=== PATIENT | male | born 1970 ===

== ENCOUNTER 2017-11-30 13:16 | Emergency (ER) | payer OTHER ==
[2017-11-30] MEDS ORDERED: Aspirin 81 MG Tab.Chew PO ONE (13:28)
[2017-11-30] MEDS ORDERED: HYDROmorphone 0.5 MG/0.5 ML Syringe IVPUSH ONE ×3 (13:40→14:19)
--- NOTE | 2017-11-30 13:42 | EDM.PDOC ---
ED HPI GENERAL MEDICAL PROBLEM - General Stated Complaint: CHEST PAINS Time Seen by Provider: 11/30/17 13:37 Source of Information: Reports: Patient History Limitations: Reports: No Limitations - History of Present Illness INITIAL COMMENTS - FREE TEXT/NARRATIVE: This 47 yo male patient reports to the ED with chest pain. The patient reports his chest pain started to day at 1200 during a meeting. The patient reports after the meeting he continued to have pain and felt a little faint. The patient reports his chest pain was gone at the time of assessment, but also reports his pains have come and gone since the start. The patient describes his symptoms as a "pressure and sharp aches." The patient then reported his pain was a 7/10 constant to nursing staff. Onset: Today Onset Date: 11/30/17 Onset Time: 12:00 Duration: Constant Location: Reports: Chest Quality: Reports: Ache, Pressure Severity: Severe Improves with: Reports: None Worsens with: Reports: None Associated Symptoms: Reports: No Other Symptoms Mid-Sternal Chest Pain Score (Numeric/FACES): 7 - Related Data Allergies Allergy/AdvReac Type Severity Reaction Status Date / Time Penicillins Allergy Cannot Verified 11/30/17 13:33 Remember ED ROS GENERAL - Review of Systems Review Of Systems: ROS reveals no pertinent complaints other than HPI. ED EXAM, GENERAL - Physical Exam Exam: See Below Exam Limited By: No Limitations General Appearance: Alert, WD/WN, Moderate Distress Eye Exam: Bilateral Eye: EOMI, Normal Inspection, PERRL Ears: Normal External Exam, Normal Canal, Hearing Grossly Normal, Normal TMs Nose: Normal Inspection, Normal Mucosa, No Blood Throat/Mouth: Normal Inspection, Normal Lips, Normal Teeth, Normal Gums, Normal Oropharynx, Normal Voice, No Airway Compromise Head: Atraumatic, Normocephalic Neck: Normal Inspection, Supple, Non-Tender, Full Range of Motion Respiratory/Chest: No Respiratory Distress Cardiovascular: Normal Peripheral Pulses, Regular Rate, Rhythm, No Edema, No Gallop, No JVD, No Murmur, No Rub GI/Abdominal: Normal Bowel Sounds, Soft, Non-Tender, No Organomegaly, No Distention, No Abnormal Bruit, No Mass (Male) Exam: Deferred Rectal (Males) Exam: Deferred Back Exam: Normal Inspection, Full Range of Motion, NT Extremities: Normal Inspection, Normal Range of Motion, Non-Tender, Normal Capillary Refill, No Pedal Edema Neurological: Alert, Oriented, CN II-XII Intact, Normal Cognition, Normal Gait, Normal Reflexes, No Motor/Sensory Deficits Psychiatric: Normal Affect, Normal Mood Skin Exam: Warm, Dry, Intact, Normal Color, No Rash Lymphatic: No Adenopathy Course - Vital Signs Last Recorded V/S: Last Vital Signs Temp 35.5 C 11/30/17 13:38 Pulse 66 11/30/17 13:38 Resp 13 11/30/17 13:38 BP 116/76 11/30/17 13:38 Pulse Ox 99 11/30/17 13:38 - Orders/Labs/Meds Orders: Active Orders 24 hr Category Date Time Status EKG Documentation Completion [RC] URGENT Care 11/30/17 13:39 Ordered Heparin Sodium/0.45% NaCl [Heparin 25,000 Units in 1/2 Med 11/30/17 14:11 Ordered NS 500 ML] 25,000 units in 500 ml IV ONETIME Medication Orders Heparin Sodium/Sodium Chloride (Heparin 25,000 Units In 1/2 Ns 500 Ml) 25,000 units in 500 mls @ 21.228 mls/hr IV ONETIME ONE Stop: 12/01/17 13:44 Last Admin: 11/30/17 14:21 Dose: 12 units/kg/hr, 21.228 mls/hr Labs: Laboratory Tests 11/30/17 11/30/17 Range/Units 13:35 13:35 WBC 13.5 H (5.0-10.0) 10^3/uL RBC 4.92 (4.6-6.2) 10^6/uL Hgb 16.1 (14.0-18.0) g/dL Hct 47.5 (40.0-54.0) % MCV 96.5 (80-100) fL MCH 32.7 (27.0-34.0) pg MCHC 33.9 (33.0-35.0) g/dL Plt Count 266 (150-450) 10^3/uL Neut % (Auto) 81.5 H (42.2-75.2) % Lymph % (Auto) 11.7 L (20.5-50.1) % Nelson % (Auto) 6.0 (2-8) % Eos % (Auto) 0.6 L (1.0-3.0) % Baso % (Auto) 0.2 (0.0-1.0) % Sodium 134 L (135-145) mmol/L Potassium 3.7 (3.6-5.0) mmol/L Chloride 98 L (101-111) mmol/L Carbon Dioxide 29.0 (21.0-31.0) mmol/L Anion Gap 10.7 BUN 9 (7-18) mg/dL Creatinine 1.1 (0.6-1.3) mg/dL Est Cr Clr Drug Dosing 84.80 mL/min Estimated GFR (MDRD) > 60 BUN/Creatinine Ratio 8.18 Glucose 166 H (74-105) mg/dL Calcium 8.9 (8.4-10.2) mg/dl Total Bilirubin 0.6 (0.2-1.0) mg/dL AST 24 (10-42) IU/L ALT 19 (10-60) IU/L Alkaline Phosphatase 58 (42-121) IU/L Troponin I < 0.02 (0.00-0.02) ng/ml Total Protein 7.5 (6.7-8.2) g/dl Albumin 3.9 (3.2-5.5) g/dl Globulin 3.6 Albumin/Globulin Ratio 1.08 Meds: Medications Generic Name Dose Route Start Last Admin Trade Name Freq PRN Reason Stop Dose Admin Heparin Sodium/Sodium Chloride 25,000 units in 500 mls @ 21.228 mls/hr 14:11 11/30/17 14:21 Heparin 25,000 Units In 1/2 Ns 500 Ml IV 12/01/17 13:44 12 units/kg/hr ONETIME ONE 21.228 mls/hr Administration 12 UNITS/KG/HR Discontinued Medications Generic Name Dose Route Start Last Admin Trade Name Freq PRN Reason Stop Dose Admin Aspirin 324 mg 11/30/17 13:28 11/30/17 13:32 Aspirin PO 11/30/17 13:29 324 mg ONETIME ONE Administration Clopidogrel Bisulfate 300 mg 11/30/17 14:11 11/30/17 14:15 Plavix PO 11/30/17 14:12 300 mg ONETIME ONE Administration Clopidogrel Bisulfate Confirm 11/30/17 14:12 11/30/17 14:21 Plavix Administered 11/30/17 14:13 Not Given Dose 300 mg .ROUTE .STK-MED ONE Heparin Sodium (Porcine) 5,000 units 11/30/17 14:10 11/30/17 14:16 Heparin Sodium IVPUSH 11/30/17 14:11 5,000 units ONETIME ONE Administration Heparin Sodium (Porcine) Confirm 11/30/17 14:11 11/30/17 14:16 Heparin Sodium Administered 11/30/17 14:12 Not Given Dose 5,000 units .ROUTE .STK-MED ONE Hydromorphone HCl 0.5 mg 11/30/17 13:40 11/30/17 13:46 Dilaudid IVPUSH 11/30/17 13:41 0.5 mg ONETIME ONE Administration Hydromorphone HCl 0.5 mg 11/30/17 13:51 11/30/17 13:51 Dilaudid IVPUSH 11/30/17 13:52 0.5 mg ONETIME ONE Administration Hydromorphone HCl 0.5 mg 11/30/17 14:19 11/30/17 14:20 Dilaudid IVPUSH 11/30/17 14:20 0.5 mg ONETIME ONE Administration Hydromorphone HCl Confirm 11/30/17 14:18 Dilaudid Administered 11/30/17 14:19 Dose 0.5 mg .ROUTE .STK-MED ONE Tenecteplase 45 mg 11/30/17 13:48 11/30/17 14:15 Tnkase IV 11/30/17 13:49 45 mg ONETIME ONE Administration Protocol Departure - Departure Time of Disposition: 14:26 Disposition: DC/Tfer to Acute Hospital 02 Reason for Transfer *Q: Other Condition: Serious Clinical Impression: STEMI (ST elevation myocardial infarction) Qualifiers: Involved coronary artery: unspecified coronary artery Qualified Code(s): I21.3 - ST elevation (STEMI) myocardial infarction of unspecified site Forms: Interfacility Transfer EMTALA Care Plan Goals: Discussed the history, examination, labs, EKG and treatment's with [facility]. The patient was accepted for continued evaluation and treatment. The patient will be transported by [facility]. - My Orders Last 24 Hours: My Active Orders 11/30/17 13:39 EKG Documentation Completion [RC] URGENT 11/30/17 14:11 Heparin Sodium/0.45% NaCl [Heparin 25,000 Units in 1/2 NS 500 ML] 25,000 units in 500 ml IV ONETIME - Assessment/Plan Last 24 Hours: My Active Orders 11/30/17 13:39 EKG Documentation Completion [RC] URGENT 11/30/17 14:11 Heparin Sodium/0.45% NaCl [Heparin 25,000 Units in 1/2 NS 500 ML] 25,000 units in 500 ml IV ONETIME
[2017-11-30] MEDS ORDERED: Tenecteplase 50 MG Kit IV ONE (13:48)
[2017-11-30 14:02] LABS: CHLORIDE,CL 98 mmol/L (101-111); SODIUM,NA 134 mmol/L (135-145)
--- NOTE | 2017-11-30 14:04 | CR ---
CLINICAL HISTORY: 47-year-old male with chest pain and abnormal EKG. INTERPRETATION: Upright AP portable chest film unremarkable, i.e., no acute cardiopulmonary abnormality (external ca rdiac monitor leads). Normal cardiac silhouette without cephalization of vascular flow, signs of alveolar edema or dependen t pleural fluid accumulation. No lung mass, hilar lymphadenopathy or focal lobar pneumonia. No atelectasis/collapse. No pneumothorax.
[2017-11-30] MEDS ORDERED: Heparin Sodium 5,000 Units/ML Vial IVPUSH ONE (14:10)
[2017-11-30] MEDS ORDERED: Heparin Sodium 5,000 Units/ML Vial ONE (14:11)
[2017-11-30] MEDS ORDERED: Heparin Sodium/0.45% NaCl 25,000 UNITS/500 ML BAG IV ONE (14:11)
[2017-11-30] MEDS ORDERED: Clopidogrel 75 MG Tab PO ONE (14:11)
[2017-11-30] MEDS ORDERED: Clopidogrel 75 MG Tab ONE (14:12)
[2017-11-30] MEDS ORDERED: HYDROmorphone 0.5 MG/0.5 ML Syringe ONE (14:18)
[2017-11-30] MEDS ORDERED: Ondansetron 4 MG/2 ML SDV ONE (14:44)
--- NOTE | 2017-12-04 12:47 | EKG ---
11/30/2017 - PUMA DUNLAP - This 12-lead EKG shows mild ST elevation in lead II, III, and aVF and ST depression in leads V2, V3, suggestive of possible acute myocardial infarction. ST elevation in inferior leads. Further evaluation needed with serial troponins and repeat 12-lead EKG and Cardiology consultation for this patient. [facility] /[id number]
== END 2017-11-30 14:50 ==
LOC: DL.ED 13:16
DX: I21.3 ST elevation (STEMI) myocardial infarction of unspecified site (principal); Z88.0 Allergy status to penicillin
CPT/HCPCS: 36415; 71045; 80053; 84484; 85025; 93005; 96365; 96375; 96376; 99285; A9270; J1170; J1644; J3101